=== PATIENT | male | born 1955 | race Native Hawaiian/Other Pacific Islander ===

== ENCOUNTER 2018-06-04 15:56 | Outpatient (CLI) | payer BC ==
[~2018-06-04 15:56] MED LIST: ALPR0.2566 PO; CIALIS5 MG PO
== END 2018-06-04 15:58 | disposition short-term general hospital (02) ==
LOC: AMB 15:56
DX: T50.995A Adverse effect of other drugs, medicaments and biological substances, initial encounter (principal); Y92.531 Health care provider office as the place of occurrence of the external cause; I95.89 Other hypotension; R07.89 Other chest pain
CPT/HCPCS: A0425; A0429

== ENCOUNTER 2018-06-04 16:00 | Emergency (ER) | payer BC ==
[~2018-06-04] VITALS: Ht 177.8 cm; Wt 97.5 kg
[2018-06-04 18:15] VITALS: BP 140/80; TEMP 98
== END 2018-06-04 18:15 | disposition home or self-care (01) ==
LOC: ED 16:00
DX: T41.3X5A Adverse effect of local anesthetics, initial encounter (principal); Y92.89 Other specified places as the place of occurrence of the external cause
CPT/HCPCS: 99282; J2930